=== PATIENT | female | born 1975 | race African-American/Black ===

== ENCOUNTER 2017-12-13 17:20 | Emergency (ER) | payer OTHER ==
--- NOTE | 2017-12-13 18:03 | PDOC ---
Attending Attestation - Medical Decision Making 12/13/17 18:40 Pt presents to the ED after syncope today. Reports recent Gi illness that is now resolving, but did have a period of severely decreased PO intake. Now is asymptomatic. Differential includes dehydration, less likely ectopic , ACS. unlikely PE since patient is asymptomatic and is PERC negative. Will check labs and U preg, cardiac enzymes. Will treat with IV hydration. Will reassess after hydration. <Airam Monzon - Last Filed: 12/13/17 18:40> - Resident Resident Name: Roman La - ED Attending Attestation I have performed the following: I have examined & evaluated the patient, The case was reviewed & discussed with the resident, I agree w/resident's findings & plan, Exceptions are as noted - HPI HPI: 12/13/17 18:57 The patient is a 42 year old female, with a significant past medical history of DM and s/p bariatric surgery, who presents to the emergency department with, 4 hours s/p an episode of syncope. As per patient 2 days ago she had multiple bouts of diarrhea after eating food which she believes went bad. Yesterday, she reports loose stool and a decreased appetite. Today, when taking a shower she began to feel lightheaded. She attempted to go to her room when she hit her head on the door knob. She is unaware of how long she was unconscious. She went to an Urgent Care who advised her to report to the ED for further evaluation. She denies recent fevers, chills, or headache. She denies recent nausea, vomit, or constipation. She denies recent dysuria, frequency, urgency or hematuria. She denies recent chest pain or shortness of breath. Allergies: Metformin. Past surgical history: S/p bariatric surgery. Social history: Nonsmoker. Denies EtOH use and recreational drug use. - Physicial Exam PE: 12/13/17 18:58 GENERAL: Awake, alert, and fully oriented, in no acute distress HEAD: No signs of trauma EYES: PERRLA, EOMI, sclera anicteric, conjunctiva clear ENT: Auricles normal inspection, hearing grossly normal, nares patent, oropharynx clear without exudates. Moist mucosa NECK: Normal ROM, supple, no lymphadenopathy, JVD, or masses LUNGS: Breath sounds equal, clear to auscultation bilaterally. No wheezes, and no crackles HEART: Regular rate and rhythm, normal S1 and S2, no murmurs, rubs or gallops ABDOMEN: Soft, nontender, normoactive bowel sounds. No guarding, no rebound. No masses EXTREMITIES: Normal range of motion, no edema. No clubbing or cyanosis. No cords, erythema, or tenderness NEUROLOGICAL: Cranial nerves II through XII grossly intact. Normal speech. SKIN: Warm, Dry, normal turgor, no rashes or lesions noted. <Karen Herrmann - Last Filed: 12/13/17 18:58> Attestations - Attestations 12/13/17 18:58 Documentation prepared by Karen Herrmann, acting as medical representative for Airam Monzon MD. <Karen Herrmann - Last Filed: 12/13/17 18:58>
[2017-12-13 18:13] VITALS: BMI 37.5
[2017-12-13] MEDS ORDERED: SODIUM CHLORIDE 1,000 ML IV STA (18:27)
--- NOTE | 2017-12-13 18:39 | PDOC ---
History of Present Illness - General Chief Complaint: Chest Pain Stated Complaint: CHEST PAIN Time Seen by Provider: 12/13/17 17:46 History Source: Patient Exam Limitations: No Limitations - History of Present Illness Initial Comments: 12/13/17 18:39 42f with pmh of diabetes and bariatric surgery presents to the Ed after episode of syncope around 2pm today. She describes multiple episodes of diarrhea on Wednesday after eating large amount of rotten Halal meat on Wednesday. On Wednesday the diarrhea improved a bit but she was still endorsing lose stools and PO intake. Shelby dizzy and dehydrated. Took a shower this afternoon and felt very lightheaded in the shower. Got out and fell on the floor, bumping her head on a door, losing consciousness for an unknown amount of time. Woke up on her own and went to an Urgent Care who redirected her to our ED. 12/13/17 19:07 Hasn't been taking diabetes medication since bariatric surgery, controlled. FS over the last day was around 120. No sign of trauma over head or face. 12/13/17 19:08 LMP November 14. Uses protection for sexual intercourse. Past History - Past Medical History Allergies/Adverse Reactions: Allergies Allergy/AdvReac Type Severity Reaction Status Date / Time metformin Allergy Verified 12/13/17 17:45 Review of Systems - Review of Systems Able to Perform ROS?: Yes Is the patient limited Telugu proficient: No Constitutional: No: Symptoms Reported HEENTM: No: Symptoms Reported Respiratory: No: Symptoms reported Cardiac (ROS): No: Symptoms Reported ABD/GI: No: Symptoms Reported : No: Symptoms Reported Musculoskeletal: No: Symptoms Reported Integumentary: No: Symptoms Reported Neurological: No: Symptoms reported Endocrine: No: Symptoms Reported All Other Systems: Reviewed and Negative *Physical Exam - Vital Signs Last Vital Signs Temp Pulse Resp BP Pulse Ox 98.4 F 87 17 138/127 98 12/13/17 18:04 12/13/17 19:31 12/13/17 19:31 12/13/17 19:31 12/13/17 19:31 - Physical Exam General Appearance: Yes: Appropriately Dressed, Obese. No: Apparent Distress HEENT: positive: EOMI, KARI, Normal ENT Inspection Respiratory/Chest: positive: Lungs Clear, Normal Breath Sounds. negative: Chest Tender, Respiratory Distress Cardiovascular: positive: Regular Rhythm, Regular Rate, S1, S2 Gastrointestinal/Abdominal: positive: Normal Bowel Sounds, Flat, Soft. negative : Tender Musculoskeletal: positive: Normal Inspection. negative: CVA Tenderness Extremity: positive: Normal Capillary Refill, Normal Inspection, Normal Range of Motion Integumentary: positive: Normal Color, Dry, Warm Neurologic: positive: Fully Oriented, Alert, Normal Mood/Affect, Normal Response , Motor Strength 09/18 ED Treatment Course - LABORATORY CBC & Chemistry Diagram: 12/13/17 19:25 - ADDITIONAL ORDERS Additional order review: Laboratory Results 12/13/17 12/13/17 19:25 19:06 Sodium 139 Potassium 3.9 Chloride 106 Carbon Dioxide 23 Anion Gap 10 BUN 7 Creatinine 0.8 Creat Clearance w eGFR > 60 Random Glucose 127 H Calcium 9.4 Total Bilirubin 0.6 AST 15 ALT 23 Alkaline Phosphatase 73 Troponin I < 0.02 Total Protein 7.5 Albumin 3.7 Urine Color Yellow Urine Appearance Clear Urine pH 6.0 Ur Specific Raymond 1.013 Urine Protein Negative Urine Glucose (UA) Negative Urine Ketones 1+ H Urine Blood Negative Urine Nitrite Negative Urine Bilirubin Negative Urine Urobilinogen Negative Ur Leukocyte Esterase Negative Urine HCG, Qual Negative - Medications Given in the ED: ED Medications Discontinued Medications Generic Name Dose Route Start Last Admin Trade Name Freq PRN Reason Stop Dose Admin Sodium Chloride 1,000 mls @ 1,000 mls/hr 12/13/17 18:27 12/13/17 19:17 Normal Saline - IV 12/13/17 19:26 1,000 mls/hr ASDIR STA Administration Medical Decision Making - Medical Decision Making 12/13/17 19:09 Will check EKG, trops, orthostatic vitals. Low suspicion for acute brain injury due to [place]'s score. This is likely syncope secondary to dehydration, vasovagal reflex. 12/13/17 19:12 EKG: Normal Sinus rhythm. Normal EkG 12/13/17 20:19 All labs negative. Will d/c with recommendations *DC/Admit/Observation/Transfer Diagnosis at time of Disposition: Dehydration - Discharge Dispostion Disposition: HOME Condition at time of disposition: Improved Decision to Admit order: No - Referrals Referrals: ON STAFF,NOT [Primary Care Provider] - - Patient Instructions Printed Discharge Instructions: DI for Syncope in Adults (Fainting) Additional Instructions: Come back to the emergency department for any new, worsenin gor concerning symptom. Follow up with your primary care provider within the next 2-3 days. Drink plenty of fluids. Avoid sugary drinks. - Post Discharge Activity
[2017-12-13 19:25] LABS: HCG,QUALITATIVE URINE NEGATIVE; URINE APPEARANCE CLEAR; URINE BILIRUBIN NEGATIVE (<2.0 mg/dL); URINE COLOR YELLOW; URINE GLUCOSE (UA) NEGATIVE (NEGATIVE); URINE KETONE 1+ (NEGATIVE); URINE LEUK ESTERASE NEGATIVE (NEGATIVE); URINE NITRITE NEGATIVE (NEGATIVE); URINE PROTEIN NEGATIVE (NEGATIVE); URINE UROBILINOGEN NEGATIVE mg/dL (0.2-1.0)
[2017-12-13 20:00] LABS: ALBUMIN 3.7 g/dl (3.4-5.0); ANION GAP 10 (8-16); BILIRUBIN,TOTAL 0.6 mg/dL (0.2-1.0); BLOOD UREA NITROGEN 7 mg/dL (7-18); CALCIUM 9.4 mg/dL (8.5-10.1); CHLORIDE 106 mmol/L (98-107); CO2 23 mmol/L (21-32); CREATININE 0.8 mg/dL (0.55-1.02); GLUCOSE,RANDOM 127 mg/dL (74-106); POTASSIUM 3.9 mmol/L (3.5-5.1); SGOT/AST 15 U/L (15-37); SGPT/ALT 23 U/L (12-78); SODIUM 139 mmol/L (136-145); TOT PROT 7.5 g/dl (6.4-8.2)
[2017-12-13 20:03] LABS: ALK PHOS 73 U/L (45-117)
[2017-12-13 20:52] VITALS: BP 128/71; PULSE 78; TEMP 97.9
--- NOTE | 2017-12-15 11:15 | EKG ---
Test Reason : Blood Pressure : / mmHG Vent. Rate : 083 BPM Atrial Rate : 083 BPM P-R Int : 134 ms QRS Dur : 086 ms QT Int : 384 ms P-R-T Axes : 032 024 031 degrees QTc Int : 451 ms NORMAL SINUS RHYTHM NORMAL ECG NO PREVIOUS ECGS AVAILABLE Confirmed by ASHLIE ADAMSON, MARIEL ([id number]) on 12/15/2017 11:14:32 AM Referred By: Confirmed By:MARIEL DAILEY MD
== END 2017-12-13 20:49 | disposition home or self-care (01) ==
LOC: JER 17:20
PROC: 3E0337Z Introduction of Electrolytic and Water Balance Substance into Peripheral Vein, Percutaneous Approach (ICD-10-PCS; principal; 2017-12-13)
DX: E86.0 Dehydration (principal); S06.9X9A Unspecified intracranial injury with loss of consciousness of unspecified duration, initial encounter; W01.198A Fall on same level from slipping, tripping and stumbling with subsequent striking against other object, initial encounter; Y93.89 Activity, other specified; Y92.098 Other place in other non-institutional residence as the place of occurrence of the external cause; E11.9 Type 2 diabetes mellitus without complications; Z98.84 Bariatric surgery status
CPT/HCPCS: 80053; 81003; 84484; 84703; 93005; 93010; 99282-25; J7030